=== PATIENT | male | born 1965 ===

== ENCOUNTER 2017-10-06 11:26 | Inpatient (IN) | payer MEDICAID ==
[2017-10-06 11:50] VITALS: BMI 32.3
[2017-10-06 13:52] LABS: BASO % 0.4 % (0.0-2.0); EOS # 0.4 K/uL (0.0-0.7); EOS % 4.6 % (0.0-4.0); LYMPH # 1.5 K/uL (1.0-4.3); LYMPH % 17.5 % (20.0-40.0); MEAN CELL VOLUME 73.1 fL (80.0-94.0); MEAN CORPUSCULAR HEMOGLOBIN 23.6 pg (27.0-31.0); MEAN CORPUSCULAR HGB CONC 32.3 g/dL (33.0-37.0); MEAN PLATELET VOLUME 7.9 fL (7.2-11.7); MONO # 0.6 K/uL (0.0-0.8); MONO % 7.2 % (0.0-10.0); NEUT # 5.9 K/uL (1.8-7.0); NEUT % 70.3 % (50.0-75.0); RBC 4.68 Mil/uL (4.40-5.90); RED CELL DISTRIBUTION WIDTH 16.5 % (11.5-14.5); WHITE BLOOD COUNT 8.4 K/uL (4.8-10.8)
[2017-10-06 14:04] LABS: ALB/GLOB RATIO 0.9 (1.0-2.1); ALBUMIN 3.6 g/dL (3.5-5.0); ALT/SGPT 19 U/L (21-72); AST/SGOT 31 U/L (17-59); BLOOD UREA NITROGEN 13 mg/dL (9-20); CALCIUM 8.7 mg/dl (8.6-10.4); GFR AFRICAN-AMERICAN > 60; GFR NON-AFRICAN AMERICAN > 60
[2017-10-06 14:05] LABS: SQUAMOUS EPITHIAL 2 /hpf (0-5); URINE BILIRUBIN NEGATIVE (NEGATIVE); URINE BLOOD NEGATIVE (NEGATIVE); URINE CLARITY Clear (Clear); URINE COLOR Yellow (YELLOW); URINE GLUCOSE (UA) NORMAL (Normal); URINE LEUKOCYTE ESTERASE NEG Leu/uL (Negative); URINE NITRATE NEGATIVE (NEGATIVE); URINE PROTEIN NEGATIVE (NEGATIVE)
[2017-10-06 14:17] LABS: BARBITURATES, UR NEGATIVE (NEGATIVE); PHENCYCLIDINE, UR NEGATIVE (NEGATIVE)
--- NOTE | 2017-10-06 14:21 | C.PDOC ---
History Of Present Illness 51 yr old male presents to the ER with complaints of having suicidal ideation and feeling depressed. Patient reports of opiod addiction. States he has been having "crazy thoughts". Patient denies HI, fever, chest pain, SOB, nausea, vomiting, abdominal pain, weakness or numbness. Time Seen by Provider: 10/06/17 12:20 Chief Complaint (Nursing): Psychiatric Evaluation History Per: Patient History/Exam Limitations: no limitations Past Medical History Reviewed: Historical Data, Nursing Documentation, Vital Signs Vital Signs: Last Vital Signs Temp 98.9 F 10/06/17 11:47 Pulse 82 10/06/17 11:47 Resp 18 10/06/17 11:47 BP 152/86 H 10/06/17 11:47 Pulse Ox 96 10/06/17 16:03 - Medical History PMH: Anxiety, Asthma, Bipolar Disorder, Diabetes, HTN Family History: States: No Known Family Hx - Social History Hx Tobacco Use: No Hx Alcohol Use: No Hx Substance Use: No - Immunization History Hx Tetanus Toxoid Vaccination: No Hx Influenza Vaccination: Yes Hx Pneumococcal Vaccination: No Review Of Systems Except As Marked, All Systems Reviewed And Found Negative. Constitutional: Negative for: Fever Cardiovascular: Negative for: Chest Pain Respiratory: Negative for: Shortness of Breath Gastrointestinal: Negative for: Nausea, Vomiting, Abdominal Pain Neurological: Negative for: Weakness, Numbness Psych: Positive for: Depression, Suicidal ideation Physical Exam - Physical Exam Appears: Non-toxic, No Acute Distress, Other (+ flat affect) Skin: Warm, Dry Eye(s): bilateral: Normal Inspection, PERRL, EOMI Oral Mucosa: Moist Cardiovascular: Rhythm Regular, No Murmur Respiratory: Normal Breath Sounds, No Rales, No Rhonchi, No Wheezing Gastrointestinal/Abdominal: Normal Exam, Soft, No Tenderness, No Guarding, No Rebound Neurological/Psych: Oriented x3, Normal Speech ED Course And Treatment - Laboratory Results Result Diagrams: 10/06/17 13:45 10/06/17 13:45 O2 Sat by Pulse Oximetry: 96 (RA) Pulse Ox Interpretation: Normal Medical Decision Making Medical Decision Making: IMPRESSION: Depression & suicidal ideation PLAN: * Alcohol Serum * Drug Screen * Labs * Urinalysis NOTE: * 1445 - Patient is medically cleared * Patient is admitted to psych for major depression Disposition Discussed With : Imran Antonio Doctor Will See Patient In The: Hospital Counseled Patient/Family Regarding: Studies Performed, Diagnosis - Disposition Disposition: HOSPITALIZED Disposition Time: 16:03 Condition: FAIR Forms: [facility] (Jordanian) - Clinical Impression Clinical Impression: Single major depressive episode, severe, with psychosis - Scribe Statement The provider has reviewed the documentation as recorded by the Scribe Angela Plascencia Provider Attestation: All medical record entries made by the Scribe were at my direction and personally dictated by me. I have reviewed the chart and agree that the record accurately reflects my personal performance of the history, physical exam, medical decision making, and the department course for this patient. I have also personally directed, reviewed, and agree with the discharge instructions and disposition.
[2017-10-06 14:23] LABS: BENZODIAZEPINES, UR POSITIVE (NEGATIVE); OPIATES, UR POSITIVE (NEGATIVE)
--- NOTE | 2017-10-06 16:57 | PCM.BM ---
<JoãoDianne dicksno - Last Filed: 10/06/17 16:55> Treatment Plan Problems - Problems identified on initial assessmt Depression Date Initiated: 10/06/17 Time Initiated: 16:56 Assessment reference: NA Status: Active Treatment assets and liabiliti Patient Assests: self-reliant, negotiates basic needs Patient Liabilities: substance abuse, medical problems - Milieu Protocol Maintain good personal hygiene: daily Encourage regular showers, daily Remind patient to perform daily oral care Conduct patient checks and document Observation sheet: Q15 minutes Maintain personal safety: every shift Educate patient to report safety concerns to staff, every shift Monitor environment for contraband/sharps Medication safety: Monitor for expected outcome, potential side effects: every shift, Assess barriers to learning: every shift, Assess readiness for medication education: every shift <Yvonne Alvarez - Last Filed: 10/07/17 10:56> - Diagnosis (1) Opioid use disorder, severe, dependence Status: Acute Interventions: 10/07/17 10:58 * Assess 7x/week regarding severity of withdrawal * Educate regarding risks, benefits, side effects and alternatives of medications * Use Motivational Interviewing for abstinence * Use CBT for relapse prevention * Medication management for withdrawal symptoms * Encourage medication assisted treatment * (2) Bipolar I disorder, most recent episode depressed, severe without psychotic features Status: Acute Interventions: 10/07/17 10:59 * Assess/adjust medications daily and /or as needed * See patient on an individual basis 7x/week to assess level of manic behaviors and stability * Discuss risks, benefits, side effects and alternatives of medications * <Mari Johnson - Last Filed: 10/07/17 11:02> Family Contact Family involvement: Famliy/SO not involved - Goals for Treatment Patient goals for treatment: "I need the right meds." Discharge/Continuing Care - Education Needs Education Needs: Patient Medication, Patient Coping Skills, Patient Placement options, Patient Community resources - Discharge Discharge Criteria: Tolerates medication w/o severe side effects, No longer exhibiting s/s of withdrawal, Reduction of target symptoms Discharge to:: Home - Treatment Team Participation Discussed with Family/SO: No Was Patient/Family/SO present at Treatment Team Meeting: Yes
[2017-10-06] MEDS ORDERED: Aluminum Hydroxide/Magnesium Hydroxide Susp (30 mL) PO PRN (17:23)
[2017-10-07] MEDS: Albuterol HFA 90 mcg/actuation (8 g) INH PRN ×4 (02:42→20:58)
[2017-10-07 05:58] VITALS: O2SAT 96
--- NOTE | 2017-10-07 10:30 | PCM.PSYCH ---
Initial Psychiatric Evaluation - Initial Psychiatric Evaluation Type of Admission: Voluntary Legal Status: Capacity Chief Complaint (in patient's own words): "I am feeling depressed." History of Present Illness and Precipitating Events: 51 year old male single and unemployed presented to the ED stating he wanted to kill himself by OD on heroin. He reports depressed mood and feelings of hopelessness and helplessness. He has been using for the last 12 years about a bundle daily IV. He last used on Thursday. He currently is experiencing withdrawal symptoms including stomach cramps, irritability, and shaking. He has detoxed several times in the past and has also been to rehab. He reports severe anxiety. [place] [facility] [place] arm [place]. He currently is not concerned for any other injection sites. He admits to a history of Bipolar disorder and was taking Paxil, Xanax, and Gabapentin. He is very irritable and agitated. Psych hx: bipolar, Heroin use disorder, anxiety disorder Medical hx: right leg amputation, asthma Medication: Gabapentin 300 mg QID, Paxil 25 mg daily, and Xanax 1 mg TID, Albuterol PRN Current Medications: Active Medications Generic Name Dose Route Start Last Admin Trade Name Freq PRN Reason Stop Dose Admin Al Hydrox/Mg Hydrox/Simethicone 30 ml 10/06/17 17:23 Maalox 30 Ml PO TID PRN Indigestion / Heartburn Albuterol 1 puff 10/06/17 18:14 10/07/17 10:02 Ventolin Hfa 90 Mcg/Actuation (8 G) INH 1 puff Q4 PRN Administration Shortness of Breath Clonidine HCl 0.1 mg 10/06/17 17:23 10/06/17 17:34 Catapres PO 0.1 mg Q8 PRN Administration COWS Score More or Equal to 5 Enalapril Maleate 20 mg 10/07/17 10:15 10/07/17 10:07 Vasotec PO 20 mg DAILY ONEYDA Administration Gabapentin 300 mg 10/06/17 18:00 10/07/17 10:08 Neurontin PO 300 mg TID ONEYDA Administration Hydrochlorothiazide 25 mg 10/06/17 17:30 10/07/17 10:02 Hydrodiuril PO 25 mg DAILY ONEYDA Administration Hydroxyzine HCl 25 mg 10/06/17 17:24 10/06/17 18:12 Atarax PO 25 mg Q6 PRN Administration Agitation Loperamide HCl 2 mg 10/06/17 17:23 Imodium PO Q8 PRN Diarrhea Ondansetron HCl 4 mg 10/06/17 17:23 Zofran Tab PO Q8 PRN Nausea/Vomiting Paroxetine HCl 20 mg 10/07/17 10:00 10/07/17 10:07 Paxil PO 20 mg DAILY ONEYDA Administration Pseudoephedrine HCl 60 mg 10/06/17 17:23 Sudafed Tab PO QID PRN Nasal/Sinus Congestion Past Psychiatric History - Past Psychiatric History Pertinent Medical Hx (Current Medical&Sleep Prob, Allergies): Allergies Allergy/AdvReac Type Severity Reaction Status Date / Time montelukast [From Singulair] Allergy Mild Verified 10/06/17 11:45 ALPRAZolam [Xanax] 1 mg PO TID 10/06/17 Enalapril Maleate [Vasotec] 20 mg PO DAILY 10/06/17 Gabapentin 300 mg PO TID 10/06/17 Paroxetine HCl [Paxil] 25 mg PO DAILY 10/06/17 hydroCHLOROthiazide [Hydrodiuril] 25 mg PO DAILY 10/06/17 Review of Systems - Constitutional Constitutional: Chills, Malaise - Psychiatric Psychiatric: Abnormal Sleep Pattern, Anxiety, Behavioral Changes, Irritability, Mood Swings, Suicidal Ideation. absent: Depression, Hallucinations, Homicidal Ideation Mental Status Examination - Personal Presentation Personal Presentation: Looks stated age - Affect Affect: Constricted, Depressed - Motor Activity Motor Activity: Calm - Reliability in Providing Information Reliability in Providing Information: Good, Fair - Speech Speech: Organized - Mood Mood: Depressed, Anxious - Formal Thought Process Formal Thought Process: No Impairment - Obsessions/Compulsions Obsessions: No Compulsions: No - Cognitive Functions Orientation: Person, Place, Situation, Time Sensorium: Alert Attention/Concentration: Attentive Abstract Thinking: [place] Estimate of Intelligence: Average Judgement: Intact, as evidence by: Insight regarding need for hospitalization Memory: Recent intact, as evidence by: Ability to recall events of the day, Remote intact, as evidenced by: Abilit to recall sig. life events - Risk Risk: Suicidal, Withdrawal, Diminished functioning - Strength & Assets Inventory Strength & Assets Inventory: Life experience, Cooperative - Limitations Limitations: Living alone DSM 5 DX - DSM 5 DSM 5 Diagnosis: Bipolar d/o depressed severe without psychotic features Opioid use d/o - severe Opioid withdrawal - Recommended/Plan of Treatment Treatment Recommendations and Plan of Treatment: Bipolar d/o depressed severe without psychotic features -CBT -Attend groups and activities -Supportive therapy and psychoeducation -Paxil -Atarax -Trazodone Opioid use d/o - severe Opioid withdrawal -Opioid detox with Methadone -Gabapentin for augmentation -As needed medications -All risks, benefits and alternatives of the meds discussed, and the pt agreed and understood. -Attend groups and activities -Supportive therapy and psychoeducation -ME for abstinence -CBT for relapse prevention -Encourage MAT -Refer to [facility] and [facility] methadone mnt Asthma -Albuterol Projected ELOS: 4-5 days Prognosis: good with treatment Discharge Plan and Discharge Criteria: [facility] and [facility] - Smoking Cessation Smoking Cessation Initiated: No
[2017-10-08 06:02] VITALS: PULSE 54; RESP 16; TEMP 99.1
[2017-10-08] MEDS: Albuterol HFA 90 mcg/actuation (8 g) INH PRN (09:38)
[2017-10-08 09:40] VITALS: BP 116/78
--- NOTE | 2017-10-08 10:56 | PCM.PYCHDC ---
Mental Status Examination - Mental Status Examination Orientation: Person, Place, Situation, Time Memory: Intact Mood: Neutral Affect: Constricted Attention: WNL Concentration: WNL Association: WNL Fund of Knowledge: WNL Formal Thought Process: No Impairment Description of patient's judgement and insight: partially impaired Psychotic Thoughts and Behaviors: denies any AVH Suicidal Ideation: No Current Homicidal Ideation?: No Discharge Summary - Discharge Note Reason for Hospitalization: 51 year old male single and unemployed presented to the ED stating he wanted to kill himself by OD on heroin. He reports depressed mood and feelings of hopelessness and helplessness. He has been using for the last 12 years about a bundle daily IV. He last used on Thursday. He currently is experiencing withdrawal symptoms including stomach cramps, irritability, and shaking. He has detoxed several times in the past and has also been to rehab. He reports severe anxiety. [place] [facility] [place] left arm [place]. He currently is not concerned for any other injection sites. He admits to a history of Bipolar disorder and was taking Paxil, Xanax, and Gabapentin. He is very irritable and agitated. Consultations:: List each consultation separately and include: 1. Reason for request. 2. Findings. 3. Follow-up Summary of Hospital Course include:: 1. Description of specific treatment plan utilized for patients during their course of treatmen. 2. Summarize the time- course for resolution of acute symptoms and/or regressed behaviors. 3. Describe issues identified and worked on during hospitalization. 4. Describe medication utilized. 5. Describe medical problems identified and treated. 6. Reassessment of suicide risk Summary of Hospital Course: 51 year old male single and unemployed presented to the ED stating he wanted to kill himself by OD on heroin. He reports depressed mood and feelings of hopelessness and helplessness. He has been using for the last 12 years about a bundle daily IV. He last used on Thursday. He currently is experiencing withdrawal symptoms including stomach cramps, irritability, and shaking. He has detoxed several times in the past and has also been to rehab. He reports severe anxiety. He was [place] [facility] [place] for [place] left arm abscess. He currently is not concerned for any other injection sites. He admits to a history of Bipolar disorder and was taking Paxil, Xanax, and Gabapentin. He is very irritable and agitated. Psych hx: bipolar, Heroin use disorder, anxiety disorder Medical hx: right leg amputation, asthma Medication: Gabapentin 300 mg QID, Paxil 25 mg daily, and Xanax 1 mg TID, Albuterol PRN - Diagnosis (1) Opioid use disorder, severe, dependence Current Visit: Yes Status: Acute (2) Bipolar I disorder, most recent episode depressed, severe without psychotic features Current Visit: Yes Status: Acute - Final Diagnosis (DSM 5) Condition upon Discharge: FAIR DSM 5: Bipolar d/o depressed severe without psychotic features Opioid use d/o - severe Opioid withdrawal Disposition: AGAINST MEDICAL ADVICE Follow-up Treatment Plan: Bipolar d/o depressed severe without psychotic features -CBT -Attend groups and activities -Supportive therapy and psychoeducation -Paxil -Atarax -Trazodone Opioid use d/o - severe Opioid withdrawal -Opioid detox with Methadone -Gabapentin for augmentation -As needed medications -All risks, benefits and alternatives of the meds discussed, and the pt agreed and understood. -Attend groups and activities -Supportive therapy and psychoeducation -WA for abstinence -CBT for relapse prevention -Encourage MAT -Refer to [facility] and [facility] methadone mnt Asthma -Albuterol
== END 2017-10-08 11:48 | disposition left against medical advice (07) | DRG 743 ==
LOC: C.ER 11:26 → C.9E 16:02 → C.5E 16:02
PROVIDERS: ADMIT Psychiatry & Neurology Psychiatry; ATTEND Psychiatry & Neurology Psychiatry
PROC: HZ2ZZZZ Detoxification Services for Substance Abuse Treatment (ICD-10-PCS; principal; 2017-10-06)
DX: F11.23 Opioid dependence with withdrawal (principal); F31.4 Bipolar disorder, current episode depressed, severe, without psychotic features; J45.909 Unspecified asthma, uncomplicated; E11.9 Type 2 diabetes mellitus without complications; F41.9 Anxiety disorder, unspecified; I10 Essential (primary) hypertension

== ENCOUNTER 2018-01-25 15:09 | Observation (INO) | payer MEDICAID ==
[2018-01-25 15:10] VITALS: BMI 32.3
--- NOTE | 2018-01-25 16:02 | C.PDOC ---
History Of Present Illness 52 y/o male with history of psych problems and asthma presents to ED with c/o initially having suicidal thoughts and complaints of left leg swelling and pain for 3 days. Patient reports taking Ibuprofen with no relief and states he feels depressed secondary to pain. Patient currently denies SI/HI or any physical complaints at this time. pt c/o cough wiht green sputum. fever unknown Time Seen by Provider: 01/25/18 15:50 Chief Complaint (Nursing): Lower Extremity Problem/Injury History Per: Patient History/Exam Limitations: no limitations Onset/Duration Of Symptoms: Days Current Symptoms Are (Timing): Still Present Past Medical History Reviewed: Historical Data, Nursing Documentation, Vital Signs Vital Signs: Last Vital Signs Temp 98.7 F 01/25/18 15:17 Pulse 80 01/25/18 15:17 Resp 18 01/25/18 15:17 BP 123/76 01/25/18 15:17 Pulse Ox 95 01/25/18 18:57 - Medical History PMH: Anxiety, Asthma, Bipolar Disorder, Diabetes, HTN Surgical History: No Surg Hx - [facility] DETOXIFICATION SERVICES FOR SUBSTANCE ABUSE TREATMENT (10/06/17) Family History: States: No Known Family Hx - Social History Hx Tobacco Use: No Hx Alcohol Use: Yes Hx Substance Use: Yes - Immunization History Hx Tetanus Toxoid Vaccination: No Hx Influenza Vaccination: Yes Hx Pneumococcal Vaccination: No Review Of Systems Constitutional: Negative for: Fever, Chills Cardiovascular: Negative for: Chest Pain Respiratory: Positive for: Cough, Shortness of Breath, Sputum, Wheezing Gastrointestinal: Negative for: Nausea, Vomiting, Abdominal Pain Musculoskeletal: Positive for: Leg Pain (swelling) Psych: Positive for: Depression. Negative for: Suicidal ideation Physical Exam - Physical Exam Appears: Non-toxic, No Acute Distress Skin: Warm, Dry, No Rash Head: Atraumatic, Normacephalic Eye(s): bilateral: Normal Inspection Oral Mucosa: Moist Neck: Normal ROM, Supple Cardiovascular: Rhythm Regular Respiratory: No Rales, No Rhonchi, Wheezing (bilateral) Gastrointestinal/Abdominal: Soft, No Tenderness, No Guarding, No Rebound Extremity: Pedal Edema (left lower leg 3+ pitting edema), No Calf Tenderness, Other (right BKA with 1cm ulceration area to medial aspect s/p I&D. ) Neurological/Psych: Oriented x3, Normal Speech, Normal Cognition, Normal Motor, Normal Sensation ED Course And Treatment - Laboratory Results Result Diagrams: 01/25/18 17:08 01/25/18 17:08 O2 Sat by Pulse Oximetry: 95 (RA) Pulse Ox Interpretation: Normal Medical Decision Making Medical Decision Making: Plan: Blood work, Albuterol, UA, CXR pt with pna on xray, wheezing, will admit to medicine for pna and asthma. pt will be followed up on floor by Dr Alvarez for bipolar disorder. pt does not require 1:1. [address] Graham, will admit to her service Disposition Discussed With Dr.: Shu Graham Doctor Will See Patient In The: Hospital - Disposition Disposition: HOSPITALIZED Disposition Time: 18:59 Condition: STABLE Forms: [facility] (Yakut) - Clinical Impression Clinical Impression: Asthma exacerbation, Pneumonia, Bipolar disorder - PA / [employer] / Resident Statement MD/DO has reviewed & agrees with the documentation as recorded. - Scribe Statement The provider has reviewed the documentation as recorded by the Todibpadmini Cortez All medical record entries made by the Todibpadmini were at my direction and personally dictated by me. I have reviewed the chart and agree that the record accurately reflects my personal performance of the history, physical exam, medical decision making, and the department course for this patient. I have also personally directed, reviewed, and agree with the discharge instructions and disposition.
[2018-01-25] MEDS ORDERED: Albuterol-Ipratrop 3 mg / 0.5 (3 ml) UD INH STA ×2 (16:55→16:56)
[2018-01-25 17:12] LABS: BASO # 0.1 K/uL (0.0-0.2); BASO % 1.1 % (0.0-2.0); EOS # 0.7 K/uL (0.0-0.7); EOS % 7.1 % (0.0-4.0); HEMOGLOBIN 10.9 g/dL (12.0-18.0); LYMPH # 2.1 K/uL (1.0-4.3); LYMPH % 20.8 % (20.0-40.0); MEAN CORPUSCULAR HGB CONC 31.5 g/dL (33.0-37.0); MEAN PLATELET VOLUME 7.9 fL (7.2-11.7); MONO # 0.5 K/uL (0.0-0.8); MONO % 5.3 % (0.0-10.0); NEUT # 6.7 K/uL (1.8-7.0); NEUT % 65.7 % (50.0-75.0); RBC 4.73 Mil/uL (4.40-5.90); RED CELL DISTRIBUTION WIDTH 16.3 % (11.5-14.5); WHITE BLOOD COUNT 10.3 K/uL (4.8-10.8)
[2018-01-25 17:27] LABS: ALB/GLOB RATIO 0.9 (1.0-2.1); ALBUMIN 3.6 g/dL (3.5-5.0); ALT/SGPT 15 U/L (21-72); AST/SGOT 20 U/L (17-59); BLOOD UREA NITROGEN 8 mg/dL (9-20); CALCIUM 8.3 mg/dl (8.6-10.4); GFR AFRICAN-AMERICAN > 60; GFR NON-AFRICAN AMERICAN > 60
[2018-01-25 17:34] LABS: B-TYPE NATRIURETIC PEPTIDE 137 pg/mL (0-900)
[2018-01-25] MEDS ORDERED: Albuterol-Ipratrop 3 mg / 0.5 (3 ml) UD ONE (18:42)
[2018-01-25] MEDS ORDERED: MethylPREDNISolone 40 mg Vial IVP STA (18:44)
[2018-01-25] MEDS ORDERED: Azithromycin 500 MG in Sodium Chloride 0.9% 250 ML IVPB STA (18:46)
[2018-01-25] MEDS ORDERED: cefTRIAXone IV 1 gm in Dextros 50 ML IVPB STA (18:47)
[2018-01-25 19:40] LABS: BARBITURATES, UR NEGATIVE (NEGATIVE); PHENCYCLIDINE, UR NEGATIVE (NEGATIVE)
[2018-01-25 19:48] LABS: SQUAMOUS EPITHIAL 1 /hpf (0-5); URINE BACTERIA RARE (<OCC); URINE BILIRUBIN NEGATIVE (NEGATIVE); URINE BLOOD NEGATIVE (NEGATIVE); URINE CLARITY Clear (Clear); URINE COLOR Yellow (YELLOW); URINE GLUCOSE (UA) NORMAL (Normal); URINE LEUKOCYTE ESTERASE NEG Leu/uL (Negative); URINE PROTEIN NEGATIVE (NEGATIVE); URINE UROBILINOGEN NORMAL mg/dL (0.2-1.0)
[2018-01-25 19:49] LABS: BENZODIAZEPINES, UR POSITIVE (NEGATIVE); OPIATES, UR POSITIVE (NEGATIVE)
[2018-01-25] MEDS ORDERED: cefTRIAXone IV 1 gm in Dextros 50 ML IVPB ONE (20:04)
[2018-01-25 22:57] VITALS: RESP 20
[2018-01-26] MEDS: Potassium Chloride 10 mEq ER Tab PO SCH (09:44)
[2018-01-26] MEDS: Enoxaparin 40 mg Syringe SC SCH (09:46)
--- NOTE | 2018-01-26 10:28 | RAD ---
HISTORY: Detox/Psy COMPARISON: No prior. TECHNIQUE: Chest PA and lateral FINDINGS: LUNGS: Increased and coarsened interstitial markings with few scattered peribronchial cuffing changes. Findings may represent underlying sequela of reactive/ inflammatory airway disease or viral illness. In addition, apparent localized sub segmental atelectatic changes in the left lung base/lingular region as well. Developing infiltrate could be excluded followup radiographs. PLEURA: No significant pleural effusion identified. No pneumothorax apparent. CARDIOVASCULAR: Normal. OSSEOUS STRUCTURES: There are chronic appearing anterior wedge deformities of several mid to lower thoracic segments. Mild multilevel degenerative spondylosis of the thoracic spine. VISUALIZED UPPER ABDOMEN: Normal. OTHER FINDINGS: None. IMPRESSION: Increased and coarsened interstitial markings with few scattered peribronchial cuffing changes. Findings may represent underlying sequela of reactive/ inflammatory airway disease or viral illness. In addition, apparent localized sub segmental atelectatic changes in the left lung base/lingular region as well. Developing infiltrate could be excluded followup radiographs.
--- NOTE | 2018-01-26 12:43 | CP.PCM.CON ---
History of Present Illness - History of Present Illness History of Present Illness: INFECTIOUS DISEASE CONSULT; HPI; 52-year-old male with history off asthma, bipolar disorder, diabetes, hypertension who is admitted via the emergency room because of complains of left leg swelling and pain for 3 days. Patient states that he took ibuprofen but with no relief and states he feels depressed secondary to pain. Patient also complains off of cough with greenish expectoration for the past 2 weeks. Patient states he went to [facility], but sent home. Chest x-ray on admission showed questionable left lower lung/and lingular infiltrate. Patient also was wheezing and therefore advised admission for IV antibiotics. Infectious disease consultation requested by PMD for pneumonia and exacerbation of asthma. PATIENT DENIES ANY FEVER OR CHILLS. DENIES ANY HEMOPTYSIS OR CHEST PAIN. PATIENT HAS HISTORY OF LEFT BELOW-KNEE AMPUTATION. PMH: Anxiety, Asthma, Bipolar Disorder, Diabetes, HTN Surgical History: No Surg Hx - [facility] FOR SUBSTANCE ABUSE TREATMENT (10/06/17) Family History: States: No Known Family Hx - Social History Hx Tobacco Use: No Hx Alcohol Use: Yes Hx Substance Use: Yes - Immunization History Hx Tetanus Toxoid Vaccination: No Hx Influenza Vaccination: Yes Hx Pneumococcal Vaccination: No. ALLERGY; MONTELUKAST-SINGULAR. Review of Systems - Constitutional Constitutional: absent: Chills, Fever - EENT Eyes: absent: Change in Vision Nose/Mouth/Throat: absent: Dry Mouth, Mouth Lesions, Sore Throat - Cardiovascular Cardiovascular: absent: Chest Pain, Dyspnea - Respiratory Respiratory: Cough, Wheezing, Change in Mucous Color (WHITISH GREENISH IN COLOR) - Gastrointestinal Gastrointestinal: absent: Abdominal Pain, Diarrhea, Nausea, Vomiting - Genitourinary Genitourinary: absent: Dysuria, Freq UTI - Musculoskeletal Musculoskeletal: Radiating Pain into Limb (LEFT BELOW-KNEE AMPUTATION.) - Neurological Neurological: absent: Headaches - Hematologic/Lymphatic Hematologic: As Per HPI. absent: Easy Bleeding, Easy Bruising Past Patient History - Past Social History Smoking Status: Never Smoked - CARDIAC Hx Hypertension: Yes - PULMONARY Hx Asthma: Yes - NEUROLOGICAL Hx Seizures: No - HEMATOLOGICAL/ONCOLOGICAL Hx Human Immunodeficiency Virus (HIV): No - GENITOURINARY/GYNECOLOGICAL Hx Sexually Transmitted Disorders: No - PSYCHIATRIC Hx Anxiety: Yes Hx Bipolar Disorder: Yes Hx Substance Use: Yes - SURGICAL HISTORY Hx Surgeries: Yes Hx Orthopedic Surgery: Yes (PROSTHETIC SURGERY LEFT LEG) Other/Comment: HERNIA SURGERY - ANESTHESIA Hx Anesthesia: Yes Hx Anesthesia Reactions: No Meds Allergies/Adverse Reactions: Allergies Allergy/AdvReac Type Severity Reaction Status Date / [facility] Allergy Mild Verified 10/06/17 11:45 - Medications Medications: Current Medications Albuterol/Ipratropium (Duoneb 3 Mg/0.5 Mg (3 Ml) Ud) 3 ml INH RQ6 PRN PRN Reason: Shortness of Breath Stop: 01/30/18 02:12 Enalapril Maleate (Vasotec) 20 mg PO DAILY [facility] Last Admin: 01/26/18 09:45 Dose: 20 mg Enoxaparin Sodium (Lovenox) 40 mg SC DAILY [facility] Last Admin: 01/26/18 09:46 Dose: 40 mg Gabapentin (Neurontin) 300 mg PO TID [facility] Last Admin: 01/26/18 09:44 Dose: 300 mg Hydrochlorothiazide (Hydrodiuril) 25 mg PO DAILY [facility] Last Admin: 01/26/18 09:44 Dose: 25 mg Azithromycin 500 mg/ Sodium (Chloride) 250 mls @ 250 mls/hr IVPB DAILY@1830 [facility] PRN Reason: Protocol Ceftriaxone Sodium 1 gm/ (Sodium Chloride) 100 mls @ 100 mls/hr IVPB DAILY@ 1730 [facility] PRN Reason: Protocol Lorazepam (Ativan) 0.5 mg IVP Q8H [facility] Stop: 01/27/18 02:08 Last Admin: 01/26/18 09:41 Dose: 0.5 mg Methylprednisolone (Solu-Medrol) 40 mg IVP Q8 [facility] Paroxetine HCl (Paxil Cr) 25 mg PO DAILY [facility] Last Admin: 01/26/18 10:59 Dose: 25 mg Potassium Chloride (Klor-Con 10) 10 meq PO DAILY [facility] Last Admin: 01/26/18 09:44 Dose: 10 meq Physical Exam - Constitutional Appears: No Acute Distress - Head Exam Head Exam: NORMAL INSPECTION - Eye Exam Eye Exam: EOMI, PERRL - ENT Exam ENT Exam: Normal Oropharynx - Neck Exam Neck exam: Positive for: Normal Inspection - Respiratory Exam Respiratory Exam: Wheezes (expiratory wheeze and rhonchi left lung.), NORMAL BREATHING PATTERN - Cardiovascular Exam Cardiovascular Exam: Tachycardia, +S1, +S2 - GI/Abdominal Exam GI & Abdominal Exam: Normal Bowel Sounds - Extremities Exam Extremities exam: Positive for: pedal pulses present (left bka . healed scar stump seen). Negative for: calf tenderness, pedal edema - Neurological Exam Neurological exam: Alert, CN II-XII Intact, Oriented x3 - Psychiatric Exam Psychiatric exam: Normal Mood - Skin Skin Exam: Normal Color, Warm Results - Vital Signs Recent Vital Signs: Last Vital Signs Temp 98.3 F 01/26/18 07:40 Pulse 77 01/26/18 07:40 Resp 20 01/26/18 07:40 BP 136/79 01/26/18 09:45 Pulse Ox 97 01/26/18 11:07 - Labs Result Diagrams: 01/25/18 17:08 01/25/18 17:08 Labs: Laboratory Results - last 24 hr 01/25/18 01/25/18 01/25/18 17:08 17:08 19:19 WBC 10.3 RBC 4.73 Hgb 10.9 L Hct 34.6 L MCV 73.0 L MCH 23.0 L MCHC 31.5 L RDW 16.3 H Plt Count 410 H MPV 7.9 Neut % (Auto) 65.7 Lymph % (Auto) 20.8 [place] % (Auto) 5.3 Eos % (Auto) 7.1 H Baso % (Auto) 1.1 Neut # (Auto) 6.7 Lymph # (Auto) 2.1 [place] # (Auto) 0.5 Eos # (Auto) 0.7 Baso # (Auto) 0.1 Sodium 141 Potassium 3.4 L Chloride 97 L Carbon Dioxide 34 H Anion Gap 14 BUN 8 L Creatinine 0.6 L Est GFR ( Amer) > 60 Est GFR (Non-Af Amer) > 60 Random Glucose 77 Calcium 8.3 L Total Bilirubin 0.3 AST 20 ALT 15 L D Alkaline Phosphatase 80 NT-Pro-B Natriuret Pep 137 Total Protein 7.9 Albumin 3.6 Globulin 4.2 H Albumin/Globulin Ratio 0.9 L Urine Color Yellow Urine Clarity Clear Urine pH 5.0 Ur Specific [place] 1.019 Urine Protein Negative Urine Glucose (UA) Normal Urine Ketones Negative Urine Blood Negative Urine Nitrate Negative Urine Bilirubin Negative Urine Urobilinogen Normal Ur Leukocyte Esterase Neg Urine WBC (Auto) 1 Urine RBC (Auto) 1 Ur Squamous Epith Cells 1 Urine Bacteria Rare Urine Opiates Screen Urine Methadone Screen Ur Barbiturates Screen Ur Phencyclidine Scrn Ur Amphetamines Screen U Benzodiazepines Scrn U Oth Cocaine Metabols U Cannabinoids Screen Alcohol, Quantitative < 10 01/25/18 19:19 WBC RBC Hgb Hct MCV MCH MCHC RDW Plt Count MPV Neut % (Auto) Lymph % (Auto) [place] % (Auto) Eos % (Auto) Baso % (Auto) Neut # (Auto) Lymph # (Auto) [place] # (Auto) Eos # (Auto) Baso # (Auto) Sodium Potassium Chloride Carbon Dioxide Anion Gap BUN Creatinine Est GFR ( Amer) Est GFR (Non-Af Amer) Random Glucose Calcium Total Bilirubin AST ALT Alkaline Phosphatase NT-Pro-B Natriuret Pep Total Protein Albumin Globulin Albumin/Globulin Ratio Urine Color Urine Clarity Urine pH Ur Specific [place] Urine Protein Urine Glucose (UA) Urine Ketones Urine Blood Urine Nitrate Urine Bilirubin Urine Urobilinogen Ur Leukocyte Esterase Urine WBC (Auto) Urine RBC (Auto) Ur Squamous Epith Cells Urine Bacteria Urine Opiates Screen Positive H Urine Methadone Screen Negative Ur Barbiturates Screen Negative Ur Phencyclidine Scrn Negative Ur Amphetamines Screen Negative U Benzodiazepines Scrn Positive U Oth Cocaine Metabols Negative U Cannabinoids Screen Negative Alcohol, Quantitative - Imaging and Cardiology Chest x-ray Status: Report reviewed by me (SEE REPORT.) Assessment & Plan (1) Pneumonia Assessment and Plan: PANCULTURE. ESR, CRP SPUTUM gRAM STAIN AND CULTURE. DC iv ROCEPHIN 1 G EVERY 24 HOURLY.01/25/18 START IV CEFEPIME 1GM IVPB Q 8HRLY FOR BETTER PSEUDOMONAL COVERAGE.01/26/18 CONTINUE ZITHROMAX 500 DAILY DAILY 01/26/18 Status: Acute (2) Asthma exacerbation Assessment and Plan: PATIENT STARTED ON sOLU-mEDROL 40 EVERY 8 HOURLY BY PMD. Status: Acute (3) Bipolar disorder Status: Acute (4) Bipolar I disorder, most recent episode depressed, severe without psychotic features Status: Acute
--- NOTE | 2018-01-26 13:29 | PCM.PSYCH ---
Initial Psychiatric Evaluation - Initial Psychiatric Evaluation Type of Admission: Voluntary Legal Status: Capacity Chief Complaint (in patient's own words): "I'm withdrawing" History of Present Illness and Precipitating Events: He is seen, chart reviewed an case discussed Consultation was requested for his psych and substance abuse problems. This is a 52-year-old male, single with 1 child, living with his mother, unemployed. He reports depressive symptoms but denies feeling suicidal or homicidal. No delusions or hallucinations elicited. He goes to [facility] for outpatient psych treatment and is on Xanax 1 mg 3 times a day (confirmed by the sports writer), gabapentin and also Paxil CR. He, however, admits to using heroin up to 10 bags IV and is currently in withdrawal. He denies other drugs and alcohol. Past psych history: Type most with depression, no admissions or suicide attempts Medical history: Please see chart. Asthma, obesity, right below-knee amputation Family psych history: Unknown Current Medications: Active Medications Generic Name Dose Route Start Last Admin Trade Name Freq PRN Reason Stop Dose Admin Albuterol/Ipratropium 3 ml 01/26/18 02:11 Duoneb 3 Mg/0.5 Mg (3 Ml) Ud INH 01/30/18 02:12 RQ6 PRN Shortness of Breath Enalapril Maleate 20 mg 01/26/18 10:00 01/26/18 09:45 Vasotec PO 20 mg DAILY [facility] Administration Enoxaparin Sodium 40 mg 01/26/18 10:00 01/26/18 09:46 Lovenox SC 40 mg DAILY [facility] Administration Gabapentin 300 mg 01/26/18 10:01/26/18 09:44 Neurontin PO 300 mg TID [facility] Administration Hydrochlorothiazide 25 mg 01/26/18 10:00 01/26/18 09:44 Hydrodiuril PO 25 mg DAILY [facility] Administration Azithromycin 500 mg/ Sodium 250 mls @ 250 mls/hr 01/26/18 18:30 Chloride IVPB DAILY@1830 [facility] Protocol Ceftriaxone Sodium 1 gm/ 100 mls @ 100 mls/hr 01/26/18 17:30 Sodium Chloride IVPB DAILY@1730 [facility] Protocol Lorazepam 1 mg 01/26/18 14:00 Ativan PO TID [facility] Methadone HCl 15 mg 01/26/18 13:30 Methadone PO 01/26/18 13:31 ONCE ONE Methylprednisolone 40 mg 01/26/18 14:00 Solu-Medrol IVP Q8 [facility] Paroxetine HCl 25 mg 01/26/18 10:30 01/26/18 10:59 Paxil Cr PO 25 mg DAILY [facility] Administration Potassium Chloride 10 meq 01/26/18 10:00 01/26/18 09:44 Klor-Con 10 PO 10 meq DAILY [facility] Administration Past Psychiatric History - Past Psychiatric History Previous Treatment History: Intensive Outpatient Pertinent Medical Hx (Current Medical&Sleep Prob, Allergies): Allergies Allergy/AdvReac Type Severity Reaction Status Date / Time montelukast [From Singulair] Allergy Mild Verified 10/06/17 11:45 ALPRAZolam [Xanax] 1 mg PO TID 10/06/17 Enalapril Maleate [Vasotec] 20 mg PO DAILY 10/06/17 Gabapentin 300 mg PO TID 10/06/17 Paroxetine HCl [Paxil] 25 mg PO DAILY 10/06/17 hydroCHLOROthiazide [Hydrodiuril] 25 mg PO DAILY 10/06/17 Albuterol HFA [Ventolin HFA 90 mcg/actuation (8 g)] 2 puff IH [id number] PRN Potassium Chloride 10 meq PO DAILY 01/25/18 Review of Systems - Psychiatric Psychiatric: Abnormal Sleep Pattern, Anxiety, Depression, Difficulty Concentrating. absent: Hallucinations, Homicidal Ideation, Irritability Mental Status Examination - Personal Presentation Personal Presentation: Looks stated age (Obese) - Affect Affect: Constricted - Motor Activity Motor Activity: Calm - Reliability in Providing Information Reliability in Providing Information: Good - Speech Speech: Organized - Mood Mood: Depressed, Anxious - Formal Thought Process Formal Thought Process: No Impairment - Cognitive Functions Orientation: Person, Place, Situation, Time Sensorium: Alert Attention/Concentration: Easily distracted Estimate of Intelligence: Average Judgement: Intact, as evidence by: Insight regarding need for hospitalization Memory: Recent intact, as evidence by: Ability to recall events of the day, Remote intact, as evidenced by: Abilit to recall sig. life events - Risk Risk: Withdrawal, Diminished functioning - Strength & Assets Inventory Strength & Assets Inventory: Family support, Cooperative - Limitations Limitations: Other DSM 5 DX - DSM 5 DSM 5 Diagnosis: Major depression, recurrent, moderate Opioid withdrawal Opioid use disorder, severe Anxiety disorder, unspecified Tobacco use disorder, significant - Recommended/Plan of Treatment Treatment Recommendations and Plan of Treatment: Taper with methadone Use Ativan instead of Xanax Gabapentin for augmentation Continue Paxil As needed medications All risks, benefits and alternatives of the meds discussed, and the pt agreed and understood. Supportive therapy and psychoeducation [place] for abstinence Encourage MAT Refer to rehab or IOP, and self-help groups Smoking cessation with [place] Nicotine patch if needed 34 min
[2018-01-26] MEDS: MethylPREDNISolone 40 mg Vial IVP SCH ×2 (13:50→21:44)
[2018-01-26] MEDS ORDERED: Azithromycin 500 MG in Sodium Chloride 0.9% 250 ML IVPB SCH (18:30)
[2018-01-26] MEDS: Albuterol-Ipratrop 3 mg / 0.5 (3 ml) UD INH PRN (19:19)
[2018-01-27 01:44] VITALS: O2SAT 98
[2018-01-27] MEDS ORDERED: Cefepime IV 1 gm in Dextrose 1 GM/50 ML BAG IVPB SCH (03:00)
[2018-01-27] MEDS: MethylPREDNISolone 40 mg Vial IVP SCH (05:27)
[2018-01-27 07:36] LABS: BASO % 0.2 % (0.0-2.0); HEMOGLOBIN 10.7 g/dL (12.0-18.0); LYMPH # 0.8 K/uL (1.0-4.3); LYMPH % 5.5 % (20.0-40.0); MEAN CORPUSCULAR HEMOGLOBIN 23.4 pg (27.0-31.0); MEAN PLATELET VOLUME 7.8 fL (7.2-11.7); MONO # 0.4 K/uL (0.0-0.8); MONO % 2.9 % (0.0-10.0); NEUT # 13.3 K/uL (1.8-7.0); NEUT % 91.4 % (50.0-75.0); PLATELET COUNT 400 K/uL (130-400); RBC 4.59 Mil/uL (4.40-5.90); RED CELL DISTRIBUTION WIDTH 16.3 % (11.5-14.5); WHITE BLOOD COUNT 14.6 K/uL (4.8-10.8)
[2018-01-27] MEDS: Albuterol-Ipratrop 3 mg / 0.5 (3 ml) UD INH PRN (07:40)
[2018-01-27 07:50] LABS: IRON 56 ug/dL (49-181)
[2018-01-27 07:55] VITALS: PULSE 66; TEMP 98.1
[2018-01-27] MEDS ORDERED: Budesonide 0.5 mg/2 ml Inhal Susp UD INH SCH (08:00)
[2018-01-27 08:01] LABS: % IRON SATURATION 15 (20-55); TOTAL IRON BINDING CAPACITY 361 ug/dL (250-450)
[2018-01-27 09:02] LABS: FOLATE 17.6 ng/mL
[2018-01-27] MEDS: Potassium Chloride 10 mEq ER Tab PO SCH (09:25)
[2018-01-27] MEDS: Enoxaparin 40 mg Syringe SC SCH (09:28)
[2018-01-27 09:37] VITALS: BP 125/81
[2018-01-27 09:49] LABS: ANISOCYTOSIS SLIGHT; LYMPHOCYTE 9 % (20-40); MONOCYTE 5 % (0-10); NEUTROPHIL 86 % (50-75); PLATELET ESTIMATE NORMAL (NORMAL); POIKILOCYTOSIS SLIGHT; TOTAL CELLS COUNTED 100
[2018-01-27 09:50] LABS: HYPOCHROMIC SLIGHT
--- NOTE | 2018-01-27 10:07 | CP.PCM.CON ---
History of Present Illness - History of Present Illness History of Present Illness: Pulm Consult Note- Dr. Phelps's service 52 year old male with past medical history significant for Asthma and bipolar disorder presents with complaints of shortness of breath and chest pain which started three days earlier. Patient states that he had a cough with productive green sputum as well as trouble breathing. He states that his asthma is well controlled. He does admits to intermittent coughs on rare occasion but denies nighttime cough awakenings. Patient states that he follows with his Hydramatic Mechanic Dr. Liriano regularly. Patient admits to some shortness of breath after walking approximately 1 block. He attributes his difficulties to the prosthesis and crutches that he has to use when he ambulates. Patient states that his symptoms have currently resolved. He is asking whether he can go home. He denies chest pain, palpitations, headaches, nausea, vomiting at this time. PMHx- as stated above PSHx- right BKA in 2013 Medications- Gabapentin, Paxil, Xanax, Albuterol, Atrovent Social- Current smoker- 4-5 cigarettes a day for 22 years; IV heroin use for 22 years (last used on Thursday); denies alcohol use Allergies- Medical record states Montelukast Hydramatic Mechanic- Dr. Liriano Review of Systems - Constitutional Constitutional: absent: Headache - Respiratory Respiratory: Cough, Change in Mucous Color. absent: Pain with Coughing - Gastrointestinal Gastrointestinal: absent: Nausea, Vomiting - Musculoskeletal Musculoskeletal: absent: Back Pain, Neck Pain - Psychiatric Psychiatric: Anxiety Past Patient History - Past Social History Smoking Status: Light Smoker < 10 Cigarettes Daily Alcohol: None Drugs: Opiates - CARDIAC Hx Hypertension: Yes - PULMONARY Hx Asthma: Yes - NEUROLOGICAL Hx Seizures: No - HEMATOLOGICAL/ONCOLOGICAL Hx Human Immunodeficiency Virus (HIV): No - GENITOURINARY/GYNECOLOGICAL Hx Sexually Transmitted Disorders: No - PSYCHIATRIC Hx Anxiety: Yes Hx Bipolar Disorder: Yes Hx Substance Use: Yes - SURGICAL HISTORY Hx Surgeries: Yes Hx Orthopedic Surgery: Yes (PROSTHETIC SURGERY LEFT LEG) Other/Comment: HERNIA SURGERY - ANESTHESIA Hx Anesthesia: Yes Hx Anesthesia Reactions: No Meds Allergies/Adverse Reactions: Allergies Allergy/AdvReac Type Severity Reaction Status Date / Time montelukast [From Singulair] Allergy Mild Verified 10/06/17 11:45 - Medications Medications: Current Medications Albuterol/Ipratropium (Duoneb 3 Mg/0.5 Mg (3 Ml) Ud) 3 ml INH RQ6 PRN PRN Reason: Shortness of Breath Stop: 01/30/18 02:12 Last Admin: 01/27/18 07:40 Dose: 3 ml Budesonide (Pulmicort Respules) 0.5 mg INH RQ12 [facility] Last Admin: 01/27/18 07:40 Dose: 0.5 mg Enalapril Maleate (Vasotec) 20 mg PO DAILY [facility] Last Admin: 01/27/18 09:28 Dose: 20 mg Enoxaparin Sodium (Lovenox) 40 mg SC DAILY [facility] Last Admin: 01/27/18 09:28 Dose: 40 mg Gabapentin (Neurontin) 300 mg PO TID [facility] Last Admin: 01/27/18 09:25 Dose: 300 mg Hydrochlorothiazide (Hydrodiuril) 25 mg PO DAILY [facility] Last Admin: 01/27/18 09:27 Dose: 25 mg Azithromycin 500 mg/ Sodium (Chloride) 250 mls @ 250 mls/hr IVPB DAILY@1830 [facility] PRN Reason: Protocol Last Admin: 01/26/18 18:04 Dose: 250 mls/hr Cefepime HCl (Maxipime Iv 1 Gm Premix) 1 gm in 50 mls @ 100 mls/hr IVPB Q12H [facility] PRN Reason: Protocol Last Admin: 01/27/18 05:25 Dose: 100 mls/hr Lorazepam (Ativan) 1 mg PO TID [facility] Last Admin: 01/27/18 09:27 Dose: 1 mg Methadone HCl (Methadone) 10 mg PO Q24H [facility] PRN Reason: Taper Stop: 01/30/18 09:59 Last Admin: 01/27/18 09:27 Dose: 10 mg Methylprednisolone (Solu-Medrol) 40 mg IVP Q8 [facility] Last Admin: 01/27/18 05:27 Dose: 40 mg Paroxetine HCl (Paxil Cr) 25 mg PO DAILY [facility] Last Admin: 01/27/18 09:25 Dose: 25 mg Potassium Chloride (Klor-Con 10) 10 meq PO DAILY [facility] Last Admin: 01/27/18 09:25 Dose: 10 meq Physical Exam - Constitutional Appears: No Acute Distress - Head Exam Head Exam: ATRAUMATIC, NORMAL INSPECTION - Eye Exam Eye Exam: EOMI, Normal appearance, PERRL - ENT Exam ENT Exam: Mucous Membranes Moist - Neck Exam Neck exam: Positive for: Full Rom - Respiratory Exam Respiratory Exam: absent: NORMAL BREATHING PATTERN - Cardiovascular Exam Cardiovascular Exam: Tachycardia Results - Vital Signs Recent Vital Signs: Last Vital Signs Temp 98.1 F 01/27/18 07:35 Pulse 66 01/27/18 07:35 Resp 20 01/27/18 07:35 BP 125/81 01/27/18 09:28 Pulse Ox 98 01/27/18 07:35 - Labs Result Diagrams: 01/27/18 07:29 01/25/18 17:08 Labs: Laboratory Results - last 24 hr 01/27/18 01/27/18 01/27/18 07:29 07:29 07:29 WBC RBC Hgb Hct MCV MCH MCHC RDW Plt Count MPV Neut % (Auto) Lymph % (Auto) [place] % (Auto) Eos % (Auto) Baso % (Auto) Neut # (Auto) Lymph # (Auto) [place] # (Auto) Eos # (Auto) Baso # (Auto) Neutrophils % (Manual) Lymphocytes % (Manual) Monocytes % (Manual) Platelet Estimate Hypochromasia (manual) Poikilocytosis (manual Anisocytosis (manual) ESR Hemoglobin A1c 5.9 Iron 56 TIBC 361 % Saturation 15 L Triglycerides 81 Cholesterol 158 LDL Cholesterol Direct 116 HDL Cholesterol 28 L Vitamin B12 540 Folate 17.6 01/27/18 07:29 WBC 14.6 H RBC 4.59 Hgb 10.7 L Hct 32.6 L MCV 71.0 L D MCH 23.4 L MCHC 33.0 RDW 16.3 H Plt Count 400 MPV 7.8 Neut % (Auto) 91.4 H Lymph % (Auto) 5.5 L [place] % (Auto) 2.9 Eos % (Auto) 0.0 Baso % (Auto) 0.2 Neut # (Auto) 13.3 H Lymph # (Auto) 0.8 L [place] # (Auto) 0.4 Eos # (Auto) 0.0 Baso # (Auto) 0.0 Neutrophils % (Manual) 86 H Lymphocytes % (Manual) 9 L Monocytes % (Manual) 5 Platelet Estimate Normal Hypochromasia (manual) Slight Poikilocytosis (manual Slight Anisocytosis (manual) Slight ESR 56 H Hemoglobin A1c Iron TIBC % Saturation Triglycerides Cholesterol LDL Cholesterol Direct HDL Cholesterol Vitamin B12 Folate
--- NOTE | 2018-01-27 13:02 | HP ---
The patient was seen and examined at the bedside on 01/26/2018. CHIEF COMPLAINT: Cough with green phlegm and feverish feeling. HISTORY OF PRESENT ILLNESS: Mr. Chaz Mclaughlin is a 52-year-old male with history of psych problem, asthma, came to the emergency room complaining of initially having suicidal thoughts and complaining of left leg swelling and pain for 3 days. The patient reports of taking ibuprofen with no relief and states he feels depressed secondary to pain. The patient currently denies suicidal or homicidal ideation. He said it was just thought, but right now I do not have all these thoughts, physically complaining of coughing with green phlegm, shortness of breath, wheezing, sometimes feeling feverish, main problem is lower extremity pain. No headache, no dizziness. No hematuria, no hematochezia. PAST MEDICAL HISTORY: Anxiety, asthma, bipolar disorder, diabetes, and hypertension. HABITS: Tobacco, no. Alcohol, yes. Drugs, yes. Has history of substance abuse treatment in 09/2017. REVIEW OF SYSTEMS: The patient was seen and examined at the bedside on 01/26/2018, still coughing and wheezing, complaining of shortness of breath, producing green phlegm. No nausea, vomiting, diarrhea, abdominal pain. Leg pain, history of depression but right now not feeling depressed. No suicidal or homicidal ideation or thoughts. No chest pain. PHYSICAL EXAMINATION: VITAL SIGNS: Temperature 98.7, pulse 80, respiratory rate 18, and blood pressure 123/76. HEENT: Head normocephalic, atraumatic. Eyes, PERRLA. Extraocular muscles intact. Conjunctivae clear. Nose patent. Mucous membranes moist. NECK: Supple. No carotid bruits, JVD, or thyromegaly. CHEST: Bilaterally symmetrical. HEART: S1 and S2 positive. LUNGS: Clear to auscultation. ABDOMEN: Soft. Bowel sounds present. No organomegaly. EXTREMITIES: Moving all 4 extremities. LABORATORY DATA: White blood cell count 10.3, hemoglobin 10.9, hematocrit 34.6 and platelets 410. Sodium 141, potassium 3.4, BUN 8, creatinine 0.6, and glucose 77. ASSESSMENT AND PLAN: Mr. Arnoldo Ware is a 52-year-old male with anemia, thrombocytosis, hypokalemia, and hypochloremia. The patient admitted for exacerbation of asthma, pneumonia, bipolar disorder, history of anxiety also and hypertension. Did chest x-ray, seen by Dr. Malik Moore, Infectious Disease, but in her notes, I cannot make any judgment. I reviewed Dr. Augustin Esposito's notes also. History of drug abuse. Psych consult was called for substance abuse problem. Will call consult with processing lead also, given Ativan to the patient. Gastrointestinal/deep venous thrombosis prophylaxis. Repeat labs. Will follow up. Shu Graham MD [facility]
== END 2018-01-27 11:50 | disposition left against medical advice (07) ==
LOC: C.ER 15:09 → C.9E 18:58 → C.6T 22:39
PROVIDERS: ADMIT Internal Medicine; ATTEND Internal Medicine
DX: J18.9 Pneumonia, unspecified organism (principal); J45.901 Unspecified asthma with (acute) exacerbation; E11.9 Type 2 diabetes mellitus without complications; E87.6 Hypokalemia; F11.23 Opioid dependence with withdrawal; F17.210 Nicotine dependence, cigarettes, uncomplicated; I10 Essential (primary) hypertension; F41.9 Anxiety disorder, unspecified; R45.851 Suicidal ideations; Z89.512 Acquired absence of left leg below knee; F31.4 Bipolar disorder, current episode depressed, severe, without psychotic features; M79.89 Other specified soft tissue disorders; M79.605 Pain in left leg; D64.9 Anemia, unspecified
CPT/HCPCS: 36415; 71046; 80053; 80061; 80320; 80324; 80345; 80346; 80349; 80353; 80358; 80361; 81001; 82607; 82746; 83036; 83540; 83550; 83880; 83992; 85025; 85651; 86140; 87040; 94640; 96365; 96367; 96372; 96375; 96376; 97161; 97530; 99285; G0378; G8981; G8982; J0456; J0692; J0696; J1650; J2060; J2920; J7050